=== PATIENT | male | born 1955 | race Caucasian/White ===

== ENCOUNTER 2017-02-02 11:38 | Observation (INO) ==
--- NOTE | 2017-02-02 12:15 | PROVIDER DOCUMENTATION ---
HPI-Musculoskeletal Pain/Inj - GENERAL Chief Complaint: Work Related Injury Stated Complaint: FALL Time Seen by Provider: 02/02/17 12:06 Source: patient - HX OF PRESENT ILLNESS-MUSKULOSKELTAL Nature of Presenting Problem: PT STS HE FELL 1 WEEK AGO ONTO LEFT KNEE AT WORK. STS SINCE THEN LT LOWER LEG HAS BECOME RED AND SWOLLEN AND IS PANFUL. STS HX OF CARDIAC BYPASS GRAFT FROM LEFT SAPHENOUS AREA. TAKING PLAVIX. DENIES KNEE PAIN, STS LEG IS JUST TIGHT, HOT AND PAINFUL AROUND TONEY AREA. Quality of Pain: reports: throbbing, tightness Severity in ED: moderate Any recent injury?: Yes - FALL INJURY Reason for Fall: reports: tripped Review of Systems - Adult - REVIEW OF SYSTEMS - ADULT Constitutional: reports: no symptoms reported. denies: fever Eyes: reports: no symptoms reported Ears, Nose, Mouth & Throat: reports: no symptoms reported Cardiovascular: reports: no symptoms reported. denies: chest pain Respiratory: reports: no symptoms reported. denies: shortness of breath Gastrointestinal: reports: no symptoms reported. denies: abdominal pain, nausea Genitourinary: reports: no symptoms reported Musculoskeletal: reports: see HPI, other (SWELLING TO LLE) Integumentary: reports: see HPI, other (REDNESS) Neurological: reports: no symptoms reported Psychiatric: reports: no symptoms reported Endocrine: reports: no symptoms reported Hematologic/Lymphatic: reports: no symptoms reported Allergic/Immunologic: reports: no symptoms reported All Other Systems: Reviewed and Negative Past History - Adult - PAST MEDICAL HISTORY-ADULT Review of Records: reports: Nursing Assessment Review, Medications Reviewed, Social history reviewed & non-contributory. Major Childhood Illnesses: reports: history unknown Cardiovascular: reports: CAD, HTN Respiratory: reports: denies history Gastrointestinal: reports: GERD Genitourinary: reports: denies history Musculoskeletal: reports: denies history Neurological: reports: denies history Psychiatric: reports: denies history Endocrine/Immune: reports: denies history - PRIOR SURGERIES/PROCEDURES Surgical/Procedure History: reports: CABG Physical Exam-Injury Related - Physical Exam-Injury Related Initial Vital Signs Reviewed: Yes General Appearance: appears well, alert, no apparent distress Eyes: PERRL/EOMI Head, Ears, Nose, Mouth & Throat: moist mucous membranes Respiratory: chest non-tender, lungs clear, normal breath sounds, no pleuratic chest pain, no respiratory distress, no accessory muscle use. negative: wheezing Cardiovascular: normal peripheral pulses, regular rate, rhythm Extremity: normal range of motion, normal gait, normal capillary refill, erythema (LEFT TONEY WITH GENERALIZED ERYTHEMA, WARM, TENDER TO TOUCH. PITTING EDEMA TO LEFT ANKLE), pedal edema, swelling, tenderness. negative: calf tenderness Integumentary: normal color, warm/dry, erythema (LEFT TONEY PREVIOUSLY DESCRIBED. NO DRAINAGE NOTED.) Neurologic: grossly normal, no motor/sensory deficits Psych/Mental Status: normal mood/affect, oriented x 3 Progress - PLAN OF CARE/RESULTS Progress/Plan/Lab Results: Vital Signs - 8 hr 02/02/17 11:40 02/02/17 14:10 Temperature 97.8 F 98.2 F Pulse Rate 88 68 Respiratory Rate 16 16 Blood Pressure 154/108 134/68 O2 Sat by Pulse Oximetry 100 100 Laboratory Results - last 24 hr 02/02/17 02/02/17 02/02/17 13:01 13:01 13:01 WBC 7.58 RBC 4.63 L Hgb 13.2 L Hct 39.4 L MCV 85.1 MCH 28.5 MCHC 33.5 RDW Std Deviation 15.1 H Plt Count 282 MPV 9.3 Immature Gran % (Auto) 0.5 Neut % (Auto) 62.4 Lymph % (Auto) 25.3 [place] % (Auto) 8.0 Eos % (Auto) 3.7 Baso % (Auto) 0.1 Immature Gran # (Auto) 0.04 Neut # (Auto) 4.72 Lymph # (Auto) 1.92 [place] # (Auto) 0.61 H Eos # (Auto) 0.28 Baso # (Auto) 0.01 D-Dimer 1.16 H Sodium 142 Potassium 3.9 Chloride 104 Carbon Dioxide 28 Anion Gap 10 BUN 11 Creatinine 1.0 Estimated GFR/1.73 m2 > 60 BUN/Creatinine Ratio 11 Glucose 102 Calculated Osmolality 283 Calcium 8.7 L Total Bilirubin 0.35 AST 9 L ALT 11 Alkaline Phosphatase 70 Total Protein 6.7 Albumin 3.8 Globulin 2.9 Albumin/Globulin Ratio 1.3 Plasma Lactate 02/02/17 15:58 WBC RBC Hgb Hct MCV MCH MCHC RDW Std Deviation Plt Count MPV Immature Gran % (Auto) Neut % (Auto) Lymph % (Auto) [place] % (Auto) Eos % (Auto) Baso % (Auto) Immature Gran # (Auto) Neut # (Auto) Lymph # (Auto) [place] # (Auto) Eos # (Auto) Baso # (Auto) D-Dimer Sodium Potassium Chloride Carbon Dioxide Anion Gap BUN Creatinine Estimated GFR/1.73 m2 BUN/Creatinine Ratio Glucose Calculated Osmolality Calcium Total Bilirubin AST ALT Alkaline Phosphatase Total Protein Albumin Globulin Albumin/Globulin Ratio Plasma Lactate 1.2 Orders Category Date Time Status Saline Loc NOW Care 02/02/17 12:38 Active KNEE 3 VIEWS LEFT [RAD] Stat Exams 02/02/17 18:44 Ordered LOWER LEG-LEFT [RAD] Stat Exams 02/02/17 18:43 Ordered CBC WITH ELECTRONIC DIFF [HEME] Stat Lab 02/02/17 13:01 Completed COMPREHENSIVE METABOLIC PANEL [CHEM] Stat Lab 02/02/17 13:01 Completed D-DIMER [CHEM] Stat Lab 02/02/17 13:01 Completed LACTATE, PLASMA [CHEM] Stat Lab 02/02/17 15:58 Completed Vancomycin 1 gm/Ns Med 02/02/17 14:23 Discontinued 1 gm in 250 ml IV NOW Venous U/S Left Leg Stat Ther 02/02/17 12:11 Completed DISCUSSED PT CONDITION, U/S, AND LABS WITH DR. TRIPATHI WHO ASSISTED WITH PLAN OF CARE FOR IV ABX AND LACTATE LEVEL. DISPOSITION PENDING LACTATE. Result Diagrams: 02/02/17 13:01 02/02/17 13:01 - REASSESSMENT Reassessment #1 Time Reassessed: 17:40 (PER LAB, LACTATE SAMPLE WAS COLLECTED BUT WAS NEVER RUN , NOW TOO LATE TO RUN SPECIMEN AND ANOTHER MUST BE COLLECTED. PT AGREES TO STAY AND LET LAB RECOLLECT SPECIMEN. DISCUSSED THIS ISSUE WITH CHILD NUTRITION MANAGER AND LAB.) - ULTRASOUND (By Radiology) 1 US Study: Lower Ext (LEFT) Impression: Normal US Results: NEGATIVE FOR DVT PER TECH - CONSULTS/PCP/HOSPITALIST Notification #1 *Consult/PCP/Hospitalist*: DR. SPANGLER Time Discussed: 18:47 Consult Disposition: Will see in ED Departure - Departure Date of Disposition Decision: 02/02/17 Time of Disposition Decision: 18:49 DIAGNOSIS: Cellulitis Qualifiers: Site of cellulitis: extremity Site of cellulitis of extremity: lower extremity Laterality: left Qualified Code(s): L03.116 - Cellulitis of left lower limb Disposition: ADMITTED INPATIENT 09 Certified Medical Emergency: Emergent Condition: Good Referrals and Follow-Ups: Kal Wu MD [Primary Care Provider] - - Critical Care Note This patient required my direct & personal management of CC.: No Attestation - Physician/ TONY Attestation Patient care was provided by Advanced Practice Provider:: Yes Advanced Practice Provider:: Padma Duval Advanced Practice Provider documentation review:: The Mid-level provider documentation, treatment plan and medical decision making was reviewed by the physician who agrees with all treatment and medical decision making by the MLP. The physician spent face to face time with patient:: No Advanced Practice Provider documentation review:: Supervising physician onsite and consulted in the evaluation and care of this patient. The physician did not have a face to face encounter with the patient.
[2017-02-02 13:13] LABS: MANUAL DIFF NEEDED? NO
[2017-02-02 13:21] LABS: BASO% 0.1 % (0.0-0.8); EOS# 0.28 X1000 (0.0-0.7); EOS% 3.7 % (0.0-10.0); HEMATOCRIT 39.4 % (42.0-52.0); HEMOGLOBIN 13.2 g/dL (14.0-18.0); IMM GRAN# 0.04 X1000 (0.0-0.04); IMM GRAN% 0.5 % (0.0-0.5); LYMPH# 1.92 X1000 (1.2-3.4); LYMPH% 25.3 % (20.5-51.1); MCH 28.5 PG (27-31); MCHC 33.5 g/dL (33-37); MCV 85.1 FL (81-99); MONO# 0.61 X1000 (0.11-0.59); MPV 9.3 FL (7.4-10.4); NEUT% 62.4 % (42.2-75.2); PLT 282 X1000 (130-400); RBC 4.63 XMIL (4.7-6.1)
[2017-02-02 13:44] LABS: AGAP 10; ALBUMIN 3.8 g/dL (3.5-5.0); ALKALINE PHOSPHATASE 70 U/L (32-122); BUN 11 mg/dL (8-22); CALCIUM 8.7 mg/dL (8.8-10.2); CHLORIDE 104 mmol/L (98-107); COSMO 283; GOT 9 U/L (10-34); GPT 11 U/L (10-44); POTASSIUM 3.9 mmol/L (3.5-5.1); SODIUM 142 mmol/L (136-145); TCO2 28 mmol/L (25-35); TOTAL BILIRUBIN 0.35 mg/dL (0.20-1.00); TOTAL PROTEIN 6.7 g/dL (6.3-8.3)
[2017-02-02] MEDS ORDERED: VANCOMYCIN 1 GM/NS 1 GM/250 ML IVPB IV ONE (14:23)
[2017-02-02] MEDS ORDERED: NS 1,000 ML IV ONE ×2 (19:48→22:00)
--- NOTE | 2017-02-02 19:50 | Diag Imaging Result Doc PS360 ---
LOWER LEG-LEFT - 02/02/2017 INDICATION: FALL, PAIN, SWELLING TECHNIQUE: Two views COMPARISON: None FINDINGS: There are surgical clips at the medial knee and lower leg. There is some pedal edema throughout the lower leg. No fracture or dislocation. IMPRESSION: No acute disease. Electronically signed by Germain Dean 02/02/2017 7:48 PM
--- NOTE | 2017-02-02 19:50 | Diag Imaging Result Doc PS360 ---
KNEE 3 VIEWS LEFT - 02/02/2017 INDICATION: FALL, PAIN, SWELLING TECHNIQUE: COMPARISON: None FINDINGS: Bones are intact and normally aligned. No joint effusion. There is a nonspecific, coarse, superficial soft tissue calcification in front of the patellar ligament. IMPRESSION: No acute disease. Electronically signed by Germain Dean 02/02/2017 7:47 PM
[2017-02-02] MEDS ORDERED: VANCOMYCIN IV PER PHARMACY MISC SCH (20:29)
[2017-02-02] MEDS ORDERED: LASIX PO ONE (22:01)
[2017-02-02] MEDS ORDERED: VANCOMYCIN 1,500 MG in NS 250 ML IV ONE (23:00)
--- NOTE | 2017-02-02 23:09 | HISTORY AND PHYSICAL ---
CHIEF COMPLAINT: Pain and swelling in left knee and leg. HISTORY OF PRESENT ILLNESS: This is a 61-year-old male with history of CAD status post CABG. He fell about a week ago on his left knee at work. He says I think he fell on both legs. He had sustained a quite a large bruise in his right knee area. Since that time it had become red and swollen and his left lower extremity and foot has become progressively swollen. He has a very focal area anteriorly of red erythema that is very painful to touch and warm. He was worried about a blood clot so he came in for evaluation. That was evaluated in the ER, he did not have a DVT but clinically he was felt to have cellulitis and he was admitted for treatment. He did not have a white count or fever but he was admitted for cellulitis complicated associated with trauma. PAST MEDICAL HISTORY: CAD status post CABG. He denies hypertension. He says he is on a beta carolann because Dr. Hooper told it would stretch his arteries or dilate his arteries. He is not diabetic. PAST SURGICAL HISTORY: He has had a CABG. No other major history. He has had a history of wallace apparently as a child and had to have debridement associated with that. FAMILY HISTORY: Positive for CAD in mother, father, brothers. SOCIAL HISTORY: No current tobacco use. I think he quit 20 years ago. No alcohol. . ALLERGIES: Keflex . He has significant rash and shortness of breath so I think a true anaphylaxis. MEDICATIONS: He is on aspirin and Plavix. Now his CABG was at least 3 or 4 years ago. He has not had a stent since then that he can remember yet he still on aspirin and Plavix and Toprol. REVIEW OF SYSTEMS: Ten point review of systems reviewed and otherwise negative. PHYSICAL EXAMINATION: VITAL SIGNS: Blood pressure 117/56, heart rate of 85, respiratory 16, temperature 97.6 degrees. GENERALLY: Obese male, mostly centripetal obesity in no distress. Very pleasant, very knowledgeable about his medical issues. HEENT: Pupils equal, round, reactive to light. Extraocular movements were intact. Ear nose and throat exam moist mucous membranes. NECK: Supple. CARDIOVASCULAR EXAM: Was soft S1-S2. PULMONARY: Bilateral breath sounds. Clear to auscultation. GI: Soft, nontender, distended. Bowel sounds positive. EXTREMITIES: Have no clubbing or cyanosis. LYMPHATIC EXAM: He had nonpitting edema of his left leg below the knee. NEUROLOGICAL: Nonfocal. MUSCULOSKELETAL: Was 5/5 on all 4 extremities. SKIN EXAM: His left leg is distinctly more swollen than the right. He has a patch of irregularity, redness around his right anterior bird pretty much right at the midline, I do not appreciate ulceration. He has a significant ecchymoses along his right medial aspect just superior of his knee but no palpable cords. There is distinctive erythema, pain and the left leg is definitely warmer than the right leg. LABORATORY DATA: Really unremarkable. No white count. He is a little anemic hemoglobin and hematocrit 13, 39, D-dimer was positive but Doppler was reportedly negative in the ER. I do not have the final report but is documented ER note that was negative for DVT. His left leg films were negative and his left knee films were negative. ASSESSMENT: This is a 61-year-old male with history of coronary artery disease status post coronary artery bypass graft on anti-platelet therapy who presents after trauma and hematoma to his left leg with the left lower extremity cellulitis. 1. Left lower extremity cellulitis. He has been empirically placed on vancomycin. I will continue that and clinically he is responded. I am going to hold any fluids though I think it is going to worsen his edema, he was told to keep it elevated, we are going to give him a little bit of Lasix to decrease the swelling. Could be discharged on clindamycin or Bactrim or doxycycline tomorrow if he is clinically improved. He has not failed outpatient therapy at this point. This is more complicated cellulitis since he has trauma. 2. Coronary artery disease appears to be stable. I would continue his aspirin but hold his Plavix just because of his bleeding issues, not sure if he still needs Plavix I would defer to his primary coin machine servicer repairer, he sees Dr. Hooper in [place]. 3. Anemia. We will check iron stores in the morning. He has probably lost a little bit of blood with his hematoma and we will continue to follow. cc: Lucien Rodas MD
[2017-02-03 06:46] LABS: HEMATOCRIT 37.8 % (42.0-52.0); HEMOGLOBIN 12.6 g/dL (14.0-18.0); MCH 28.7 PG (27-31); MCHC 33.3 g/dL (33-37); MCV 86.1 FL (81-99); MPV 9.7 FL (7.4-10.4); RBC 4.39 XMIL (4.7-6.1)
[2017-02-03 07:08] LABS: AGAP 13; BUN 9 mg/dL (8-22); CALCIUM 8.1 mg/dL (8.8-10.2); CHLORIDE 102 mmol/L (98-107); COSMO 279; IRON SATURATION 11 %; POTASSIUM 3.4 mmol/L (3.5-5.1); SODIUM 140 mmol/L (136-145); TCO2 25 mmol/L (25-35); TIBC 291 ug/dL; TOTAL IRON 33 ug/dL (53-167); UNBOUND IRON 258 ug/dL (112-346)
[2017-02-03] MEDS ORDERED: KLOR-CON PO ONE (07:09)
[2017-02-03] MEDS ORDERED: ASPIRIN PO SCH (09:00)
[2017-02-03] MEDS ORDERED: PLAVIX PO SCH (09:00)
[2017-02-03] MEDS: TOPROL XL PO SCH (09:37)
[2017-02-03] MEDS: ASPIRIN PO SCH (09:37)
[2017-02-03] MEDS: LASIX PO SCH (09:37)
--- NOTE | 2017-02-03 15:49 | PROGRESS NOTE ---
DATE: 02/03/2017 SUBJECTIVE: Today Mr. Azar refers to be doing a little better. Still has swelling and pain to the left lower leg. OBJECTIVE: Vital signs: Blood pressure is 113/55, pulse of 85, respirations 16, temperature 98.4 degrees. General: Mr. Azar 61-year-old male morbidly obese with a BMI of 44.9, he is in bed. He had a lot of family members around him at the time of the encounter. He was not in any distress. HEENT: Mucosa is pink and moist. Anicteric. Acyanotic. Neck: Supple. Chest: Good air entry bilaterally. No crepitations. No rhonchi. Cardiovascular: Regular rate and rhythm. There is no murmurs, no rubs, no gallops. Abdomen: Soft, distended but nontender. Bowel sounds are present. Extremities: There is minimum swelling on the entire left leg, the bird is erythematous, is warm to touch and is tender. There is also some bruises in the medial aspect of the left knee. Musculoskeletal: There is sternotomy scar. LABORATORY DATA: Has been reviewed. CBC is unremarkable. Chemistry is unremarkable except for potassium of 3.4. The patient has a ferritin of 72, percent saturation is 11 and iron is 33. ASSESSMENT: 1. Left lower extremity cellulitis. 2. History of coronary artery disease status post coronary artery bypass graft. 3. Relative iron deficiency anemia. 4. Morbid obesity with body mass index of 44.9. PLAN: So in general Mr. Azar is improving. Will continue with the IV antibiotics for another 24 hours and recheck on his progression for tomorrow. Will start him on some iron pills. cc: David Lopez MD
[2017-02-03] MEDS ORDERED: VANCOMYCIN 2,500 MG in NS 500 ML IV SCH (17:00)
[2017-02-03] MEDS ORDERED: VANCOMYCIN 2 GM in NS 500 ML IV SCH (21:00)
[2017-02-03] MEDS: COLACE PO SCH (21:15)
[2017-02-03] MEDS: FERROUS SULFATE PO SCH (21:15)
[2017-02-04 05:42] LABS: MANUAL DIFF NEEDED? NO
[2017-02-04 05:51] LABS: BASO% 0.1 % (0.0-0.8); EOS# 0.41 X1000 (0.0-0.7); EOS% 6.1 % (0.0-10.0); HEMATOCRIT 38.6 % (42.0-52.0); HEMOGLOBIN 12.8 g/dL (14.0-18.0); IMM GRAN# 0.03 X1000 (0.0-0.04); IMM GRAN% 0.4 % (0.0-0.5); LYMPH# 1.56 X1000 (1.2-3.4); LYMPH% 23.1 % (20.5-51.1); MCH 28.2 PG (27-31); MCHC 33.2 g/dL (33-37); MONO# 0.69 X1000 (0.11-0.59); MONO% 10.2 % (1.7-9.3); MPV 9.6 FL (7.4-10.4); NEUT% 60.1 % (42.2-75.2); PLT 273 X1000 (130-400); RBC 4.54 XMIL (4.7-6.1)
[2017-02-04 06:32] LABS: AGAP 9; BUN 10 mg/dL (8-22); CALCIUM 8.2 mg/dL (8.8-10.2); CHLORIDE 104 mmol/L (98-107); COSMO 279; SODIUM 140 mmol/L (136-145); TCO2 27 mmol/L (25-35)
[2017-02-04] MEDS: COLACE PO SCH (11:46)
[2017-02-04] MEDS: LASIX PO SCH (11:46)
[2017-02-04] MEDS: TOPROL XL PO SCH (11:46)
[2017-02-04] MEDS: FERROUS SULFATE PO SCH (11:46)
[2017-02-04] MEDS: ASPIRIN PO SCH (11:46)
[2017-02-04 15:19] VITALS: BP 114/57
--- NOTE | 2017-02-04 17:09 | DISCHARGE SUMMARY ---
ADMISSION DATE: 02/02/2017 DISCHARGE DATE: HISTORY: He is a patient of Dr. Kal Wu. He presented with pain and swelling of the left knee and leg. A 61-year-old with history of coronary artery disease status post CABG. He fell about a week ago and twisted his left knee. He says that he fell on both legs. He had sustained quite a large bruise on the right knee area. Since that time it has become red and swollen of the left lower extremity the medial side below his knee. His good has become progressively swollen. Very focal area anterior red erythema, very painful, warm to touch consistent with cellulitis. Worried about a blood clot and came for evaluation. The Doppler was negative for blood clot in that leg, but clinically looked like he had cellulitis so was put on some IV antibiotics. PAST MEDICAL HISTORY: Includes coronary artery disease status post CABG, has hypertension. He is on beta blockers. told it would help his arteries. He is not diabetic. He had CABG bypass surgery. No other major surgery. He was treated for cellulitis and his leg continued to show improvement. [place] like he could walk. He was put on vancomycin. Cultures did not reveal any organism. White count was never elevated. DISPOSITION/PLAN: I plan to discharge him on cephalexin, so I will discharge him on Bactrim Double Strength 1 twice a day for another 7 days. He will go home on his home medications. Give him a note so he can go back to work. He will be on aspirin 160 mg daily, Plavix 75 mg a day, Toprol ER 25 mg daily, and Bactrim Double Strength b.i.d. for 7 days. Have him elevate that leg when he can. cc: Darnell Duarte MD
--- NOTE | 2017-02-06 07:08 | Extremity Venous Study ---
PROCEDURE NAME: Venous U/S Left Leg - 02/02/2017 REQUESTING PHYSICIAN: FINANCIAL ADVOCATE: [place]. INDICATIONS: 1. Edema, leg pain, bruising, fall since 1 week ago. 2. History of left greater saphenous vein harvesting. PROCEDURE: Left lower extremity venous duplex color-flow imaging. EQUIPMENT: [employer] Vivid E9 ultrasound system and a 9LD transducer. FINDINGS: Images of the left lower extremity with a comparison shot to the right common femoral vein were obtained in both sagittal and transverse planes. Doppler was used to evaluate veins for spontaneity, phasicity, respiratory excursion, and digital augmentation. Results: Left greater saphenous vein has been harvested, but otherwise normal venous compression, normal venous flow. No obvious superficial or deep venous thrombosis noted. INTERPRETATION: Normal left lower extremity venous study. cc: Moise Hernandez MD
== END 2017-02-04 18:00 | disposition home or self-care (01) ==
LOC: ED 11:38 → 4N 11:38 → SUATTDRO 19:59
PROVIDERS: ATTEND Emergency Medicine